=== PATIENT | female | born 1985 | race Caucasian/White ===

== ENCOUNTER 2019-07-12 15:00 | Outpatient (REF) | payer MEDICAID, SELFPAY ==
[2019-07-12 16:12] LABS: HCT 40.2 % (36.0-46.0); HGB 13.6 g/dL (12.0-15.5); Mean Corp. HGB Concentration 33.8 g/dL (32.0-36.0); Mean Corpuscular Hemoglobin 30.8 pg (27.0-33.0); Mean Platelet Volume 10.8 fL (8.0-11.0); Platelet Count 288 x1000/uL (130-400); RBC 4.42 m/cumm (4.00-5.20); RBC Distribution Width 12.2 % (11.7-14.6); White Blood Cell Count 7.74 k/cumm (4.4-10.8)
[2019-07-12 17:01] LABS: ALT 102 U/L (14-59); AST 39 U/L (15-37); Albumin 4.2 g/dL (3.4-5.0); Alkaline Phosphatase 55 U/L (46-116); Anion Gap 6.3 mmol/L (3-11); BUN 15 mg/dL (7-18); Bilirubin, Total 0.7 mg/dL (0.2-1.0); CO2 29.7 mmol/L (21.0-32.0); CREATININE 0.84 mg/dL (0.55-1.02); Calcium 9.2 mg/dL (8.5-10.1); Chloride 102 mmol/L (98-107); Glucose 80 mg/dL (74-106); Sodium 138 mmol/L (136-145); Total Protein 7.7 g/dL (6.4-8.2)
[2019-07-14 09:10] LABS: HBs Antibody, Quant 271.3 mIU/mL (See Note); Hepatitis B Surface Ab Positive (See Note); Hepatitis B Surface Ag Negative (Negative)
[2019-07-14 09:55] LABS: Hep A Total Ab w Rflx IgM Positive (Negative)
[2019-07-14 09:59] LABS: HIV-1/2 Ag & Ab Screen Negative (Negative)
[2019-07-14 15:03] LABS: HCV RNA Detection Quantitative 12204 IU/mL (Undetected); HCV RNA Qualitative Detected (Undetected)
[2019-07-15 11:00] LABS: HCV Genotype 2 (Undetected)
[2019-07-15 15:58] LABS: Hep A Antibody IgM Negative (Negative)
== END 2019-07-12 15:20 ==
LOC: NCHCN 15:00
PROVIDERS: PCP Family Medicine; Visit Provider Family Medicine
DX: B19.20 Unspecified viral hepatitis C without hepatic coma (principal); Z11.4 Encounter for screening for human immunodeficiency virus [HIV]
CPT/HCPCS: 80053; 85027; 86706; 86709; 87340; 87389; 87522; 86704; 87521

== ENCOUNTER 2019-07-21 16:47 | Outpatient (REF) | payer MEDICAID, SELFPAY ==
[2019-07-25 09:58] LABS: ALT 91 U/L (7-45); ActiTest Grade A1-A2; ActiTest Interpretation minimal activity; ActiTest Score 0.43; Alpha-2-Macroglobulin 142 mg/dL (100 - 280); Apoliprotein A1 142 mg/dL (>=140); Bilirubin, Total 0.6 mg/dL (<=1.2); FibroTest Interpretation no fibrosis; FibroTest Score 0.04; FibroTest Stage F0; GGT 8 U/L (5 - 36); Haptoglobin 132 mg/dL (30 - 200)
== END 2019-07-21 17:07 ==
LOC: NCHCN 16:47
PROVIDERS: PCP Family Medicine; Visit Provider Family Medicine
DX: B19.20 Unspecified viral hepatitis C without hepatic coma (principal)
CPT/HCPCS: 81596

== ENCOUNTER 2019-08-23 10:00 | Outpatient (REF) | payer MEDICAID, SELFPAY ==
[2019-08-23 23:32] LABS: Vitamin B12 648 pg/mL (193-986)
== END 2019-08-23 10:20 ==
LOC: NCHCN 10:00
PROVIDERS: PCP Family Medicine; Visit Provider Nurse Practitioner Family
DX: E53.8 Deficiency of other specified B group vitamins (principal); R19.7 Diarrhea, unspecified; B19.20 Unspecified viral hepatitis C without hepatic coma; F31.9 Bipolar disorder, unspecified
CPT/HCPCS: 82607

== ENCOUNTER 2019-09-22 12:56 | Outpatient (REF) | payer MEDICAID, SELFPAY | END 2019-09-22 13:16 | LOC: NCHCN 12:56 | PROVIDERS: PCP Family Medicine; Visit Provider Nurse Practitioner Family | DX: R19.7 Diarrhea, unspecified (principal); B19.20 Unspecified viral hepatitis C without hepatic coma; F31.9 Bipolar disorder, unspecified; R35.0 Frequency of micturition | CPT/HCPCS: 87086 ==

== ENCOUNTER 2019-09-23 10:07 | Outpatient (REF) | payer MEDICAID, SELFPAY ==
[2019-09-23 18:10] LABS: HCT 39.6 % (36.0-46.0); HGB 12.9 g/dL (12.0-15.5); Mean Corp. HGB Concentration 32.6 g/dL (32.0-36.0); Mean Corpuscular Hemoglobin 30.4 pg (27.0-33.0); Mean Corpuscular Volume 93.4 fL (80-95); Mean Platelet Volume 11.2 fL (8.0-11.0); Platelet Count 278 x1000/uL (130-400); RBC 4.24 m/cumm (4.00-5.20); RBC Distribution Width 12.3 % (11.7-14.6); White Blood Cell Count 5.66 k/cumm (4.4-10.8)
[2019-09-23 18:29] LABS: ALT 16 U/L (14-59); AST 12 U/L (15-37); Albumin 4.1 g/dL (3.4-5.0); Alkaline Phosphatase 62 U/L (46-116); Anion Gap 6.5 mmol/L (3-11); BUN 18 mg/dL (7-18); CO2 28.5 mmol/L (21.0-32.0); CREATININE 0.83 mg/dL (0.55-1.02); Calcium 9.2 mg/dL (8.5-10.1); Chloride 104 mmol/L (98-107); Glucose 84 mg/dL (74-106); Potassium 4.2 mmol/L (3.5-5.1); Sodium 139 mmol/L (136-145); Total Protein 7.4 g/dL (6.4-8.2)
[2019-09-26 14:40] LABS: HCV RNA Qualitative Undetected (Undetected)
== END 2019-09-23 10:27 ==
LOC: NCHCN 10:07
PROVIDERS: PCP Family Medicine; Visit Provider Family Medicine
DX: B19.20 Unspecified viral hepatitis C without hepatic coma (principal)
CPT/HCPCS: 80053; 85027; 87522

== ENCOUNTER 2019-11-17 19:52 | Outpatient (REF) | payer MEDICAID, SELFPAY ==
--- NOTE | 2019-11-17 14:30 | PAPFT_PTH ---
PATIENT: Rere Najera LOC: [facility] U#:[id number] AGE/SX: 34/F ROOM: RE11/17/[address]: Jazzmine Dillard : 1985 BED: DIS: 11/17/2019 SPEC #: [id number] RECD: 11/18/19 09:54 STATUS: JAVI REQ #: [id number] ROMARIO: 11/17/19 14:[address]: Jazzmine Dillard [facility] Cytology RECD BY: Lindsey Del Cid ENTERED: 11/18/19 09:55 SP TYPE: PAPFT OTHR DR: Joaquim Magana Tissues: 1 - CX/ENDOCX FOR PAP SMEARS Procedures: PAP THIN PREP/UVM Screening HPV DNA PROBE Comments: [id number] (CHLAMYDIA/GC)
[2019-11-21 14:53] LABS: Chlamydia Result Negative (Negative); GC Result Negative (Negative)
== END 2019-11-17 20:12 ==
LOC: NCHCN 19:52
PROVIDERS: PCP Family Medicine; Visit Provider Nurse Practitioner Family
DX: N89.8 Other specified noninflammatory disorders of vagina (principal); Z12.4 Encounter for screening for malignant neoplasm of cervix; Z11.51 Encounter for screening for human papillomavirus (HPV)
CPT/HCPCS: 87491; 87591; 88142; 87480; 87510; 87624; 87660

== ENCOUNTER 2020-02-01 00:38 | Outpatient (CLI) | payer MEDICAID, SELFPAY ==
--- NOTE | 2020-02-01 10:49 | DI.MAMMO_ITS ---
EXAM: MG MAMMO DIAGNOSTIC BI and left breast ultrasound limited CLINICAL HISTORY: LT BREAST LUMP, DIAGNOSTIC, N63.20. TECHNIQUE: Craniocaudal and mediolateral oblique Full Field Digital Mammography views with Computer Aided Diagnosis followed by Tomosynthesis and left breast ultrasound. COMPARISON: None. FINDINGS: Mammography/Tomosynthesis: Masses/Architectural Distortion: None seen. Microcalcifictions: No suspicious pleomorphic-type are seen. Skin Thickening/Nipple Retraction: None. Left breast US: Echotexture: Normal appearance of the glandular tissue. Shadowing: No suspicious foci. Cyst: None. Solid lesions: There is a hypoechoic radially oriented mildly lobulated avascular mass at the 2 o'divya ck position of the left breast 5 cm from the nipple measuring 0.9 x 0.5 x 1.3 cm. It appears to johnathan espond to the palpable abnormality. There is a 0.6 x 0.2 x 0.7 cm benign-appearing lymph node in the upper-outer quadrant of the left breast. Ductal dilation: None. IMPRESSION: 1. No definite evidence of malignancy is noted. 2. A six-month follow-up left breast ultrasound is recommended for re-evaluation. 3. The findings were discussed with the patient on the date of the examination. BI-RADS Category 3 - 6 month - Probably Benign Finding: Recommend follow-up mammography in 6 months Breast Density - Category D - Extremely dense The mammogram demonstrates the patient's breast tissue is dense. Dense breast tissue is very common a nd is not abnormal but dense breast tissue can make it harder to find cancer on a mammogram. Also, de nse breast tissue may increase their breast cancer risk. This information about the [facility] was provided to the patient to raise their awareness. Use this report when you speak wi th the patient about their risks for breast cancer, which includes their family history. At that time , you may recommend for more screening tests (Ultrasound or MRI) as they might be useful based on the ir risk. A negative radiographic report should not delay biopsy if a dominant or clinically suspicious mass is present. Up to ten percent of cancers are not identified on mammography. A negative report may reinforce clinical impression. Adenosis and dense breasts may obscure an underlying neoplasm. False positive reports average 6 to 10%. Patient will receive a letter notifying them of these results.
== END 2020-02-01 00:58 ==
PROVIDERS: PCP Family Medicine; Visit Provider Nurse Practitioner Family
DX: N63.21 Unspecified lump in the left breast, upper outer quadrant (principal); R59.0 Localized enlarged lymph nodes
CPT/HCPCS: 76642; 77062; 77066; G0279

== ENCOUNTER 2020-04-13 02:29 | Outpatient (CLI) | payer MEDICAID, SELFPAY ==
--- NOTE | 2020-04-13 | DI.US_ITS ---
EXAM: US CHEST CLINICAL HISTORY: MASS BELOW RT BREAST, R22.9 TECHNIQUE: Ultrasound performed using standard protocol. COMPARISON: No exams were available for comparison. This patient has had prior imaging of the oppos ite-left breast January 2018. FINDINGS: Please note this ultrasound study is limited to the area of concern in the right chest wall. The rig ht breast was not scanned. There is a well-defined 3.6 x 3.8 x 0.8 cm lesion at exact palpable location which has appearance of a probable benign lipoma. IMPRESSION: As above. Probable lipoma. However, and rescanning in 3 months time to ensure stability. If it inc reases in size then biopsy will be recommended at that time. DATA REPOSITORY:
== END 2020-04-13 02:49 ==
PROVIDERS: PCP Nurse Practitioner Family; Visit Provider Nurse Practitioner Family
DX: R22.2 Localized swelling, mass and lump, trunk (principal)
CPT/HCPCS: 76642; 76604

== ENCOUNTER 2020-06-06 17:32 | Emergency (ER) | payer MEDICAID, SELFPAY ==
[2020-06-06 17:47] VITALS: BP 129/90; PULSE 72; RESP 16; TEMP 37.3; O2SAT 97
[2020-06-06 18:24] LABS: Bilirubin Negative (Negative); Blood Negative (Negative); Clarity Clear (Clear); Glucose Negative (Negative); Ketones Trace mg/dL (Negative); Leukocyte Esterase Negative (Negative); Nitrite Negative (Negative); Specific Gravity 1.025 (1.005-1.025); Urobilinogen 0.2 EU/dL (Up TO 0.2); pH 5.5 (5-8)
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
[2020-06-06] MEDS: Loperamide 2 MG CAP 4 MG PO (18:42)
[2020-06-06 18:48] LABS: *AMPHETAMINES SCREEN URINE Negative (Negative); *BARBITURATES SCREEN URINE Negative (Negative); *BENZODIAZEPINES SCREEN URINE Negative (Negative); Cannabinoids THC Negative (Negative); Cocaine Screen,Urine Negative (Negative); METHADONE URINE SCREEN Negative (Negative); OPIATES URINE SCREEN Negative (Negative)
[2020-06-06] MEDS: FLUoxetine 20 MG CAP 40 MG PO (18:49)
[2020-06-06 18:50] LABS: Tricyclic Antidepressants Negative (Negative)
[2020-06-06 19:09] LABS: Abs Immature Grans 0.04 10^3/uL (0.0-0.06); Absolute Basophil Count 0.07 10^3/uL (0.0-0.2); Absolute Eosinophil Count 0.04 10^3/uL (0.0-0.7); Absolute Lymphocyte Count 2.13 10^3/uL (1.2-3.4); Absolute Monocyte Count 0.49 10^3/uL (0.1-0.8); Basophils % 0.8; Eosinophils % 0.5; HGB 12.3 g/dL (11.2-15.7); Immature Grans % 0.5; Lymphocytes % 24.6; MCH 31.1 pg (27.0-33.0); MCHC 33.2 % (32.0-36.0); MCV 93.4 fL (80-95); MPV 10.1 fL (8.0-11.0); Monocytes % 5.7; Neutrophils % 67.9; Nucleated RBC 0 %; Platelet Count 266 10^3/uL (130-400); RBC 3.96 10^6/uL (3.93-5.22); RDW 11.9 % (11.7-14.6); RDW-SD 40.7 fL; WBC 8.67 10^3/uL (4.4-10.8)
[2020-06-06 19:27] LABS: ALT 18 U/L (14-59); AST 13 U/L (15-37); Albumin 3.7 g/dL (3.4-5.0); Alkaline Phosphatase 70 U/L (46-116); Anion Gap 8.2 mmol/L (3-11); BUN 12 mg/dL (7-18); Bilirubin, Total 0.7 mg/dL (0.2-1.0); CO2 28.8 mmol/L (21.0-32.0); CREATININE 0.8 mg/dL (0.55-1.02); Calcium 8.9 mg/dL (8.5-10.1); Chloride 102 mmol/L (98-107); Glucose 121 mg/dL (74-106); Potassium 3.6 mmol/L (3.5-5.1); Sodium 139 mmol/L (136-145); TSH 1.97 uIU/mL (0.36-3.74); Total Protein 7.2 g/dL (6.4-8.2)
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
[2020-06-06 19:43] LABS: COVID-19 PCR Negative (Negative)
[2020-06-06 19:56] LABS: ETHANOL BLOOD < 3.0 mg/dL (<3)
[2020-06-06 20:15] LABS: Acetaminophen < 2 ug/mL (10-30); Salicylate < 2.8 mg/dL (<2.8)
[2020-06-06] MEDS: ALPRAZolam 0.25 MG TAB PO (20:17)
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
[2020-06-07] MEDS: LORazepam 1 MG TAB PO (00:57)
[2020-06-07] MEDS: FLUoxetine 20 MG CAP 60 MG PO (09:18)
[2020-06-07] MEDS: Omeprazole 20 MG CAPCR PO (09:30)
[2020-06-07] MEDS: Dicyclomine 20 MG TAB PO ×2 (09:45→15:07)
[2020-06-07] MEDS: Ibuprofen 400 MG TAB PO (11:13)
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
--- NOTE | 2020-06-07 13:29 | PDOC.CMSAFED ---
- If Service Date Differs Date of service: 06/07/20 Time of Service: 13:29 Care Management Safety Plan Status: Voluntary VOLUNTARY FOR INPATIENT PSYCHIATRIC STABILIZATION. Patient is appropriate in all interactions since arriving at [facility]; Pt has demonstrated appropriate coping and communication skills, has articulated his or her needs and concerns and is fully engaged during staff interactions. Safety plan has been established with patient, and care team, to adhere to patient goals, identify restrictions based on behavioral status, address nutrition, and determine allowed personal belongings, tools for hygiene and personal care. Determine level of activity including ambulation, level of supervision, visitors, and determine privileges based on behaviors and level of engagement by pt. SAFETY PLAN: 1. Will remain on suicide precautions and in paper clothes. 2. Will remain in room under direct supervision of one-on-one staff at all times provided by [employer], ANTONIA, DIRECTOR OF RADIOLOGY circus laborer. 3. May have paper cups, plates, finger foods as well as a cardboard spoon with which to eat meals. 4. Follow [facility] Management of the Admitted Behavioral Health Patient policy. 5. Comfort bath system only while in the ED. May shower with supervision at RN discretion if moved to Med/Surg. 6. No personal belongings 7. Visitors-No visitors at this time 8. Activities: Television if available, music tablet, coloring books, crayons, and other activities at nursing discretion. 9. Bathroom privileges: With escort while in the ED. May use bathroom available in room without limitation if moved to Med/Surg. 10. Phone: Phone use at RN discretion. 11. Due to VOLUNTARY status, if patient wishes to leave [facility], staff will contact [facility] Crisis Screener ([phone]) and On-Call Dental Front Office Assistant ([phone]) as soon as possible. In the event of elopement, notify [place] [employer] ([phone]). Patient is currently voluntarily at [facility] and seeking inpatient admission when a bed becomes available. [facility] Frontline Prototype Model Maker will continue seeking placement. Please contact the Director Special Education Dental Front Office Assistant ([phone]) and [facility] Prototype Model Maker ([phone]) for any needed changes in the Safety Plan. Safety plan has been provided to interdepartmental care team.
[2020-06-07 14:51] VITALS: BP 125/83; PULSE 80; RESP 20; TEMP 36.7; O2SAT 98
[2020-06-07 15:30] VITALS: BP 125/83; PULSE 80; RESP 20; TEMP 36.7; O2SAT 98
--- NOTE | 2020-06-08 13:33 | PDOC.MHCN ---
Date of service: 06/07/20 Time of Service: 13:33 Mental Health Crisis Note Presenting Issue How did you arrive at the ED and why did you come: Pt arrived last night via police after being assessed by [facility]. Pt was seeking a voluntary placement. Precipitating Factors Pt still endorses SI. No HI. No delusions Disposition BEHAVIOR: This clinician met with Pt today to assess her need for hospitalization. Pt is laying in her bed wrapped tightly in her blankets. Pt is cooperative with the assessment. She has a very soft spoken voice which is at times difficult to hear. She reported that she needs a hospital stay and when she is done this stay she wants to go back to [place] where she is frim. She has good insight and judgment. EYE CONTACT: Good eye contact MOOD: presents as depressed AFFECT: anxious APPETITE: She had a single bite of her sandwich this morning but was not feeling overly hungry. SLEEP(trouble falling/staying asleep: She reported that she got some sleep last night as the ER gave her some medications when she could not. Provisional Diagnosis This clinician called for hospital placements and Pt was accepted at [facility]. She was transported via [employer]. Signature Clinician's Name/Title: Essence Lee MS, [facility] Emergency Services Clinician, [facility]
== END 2020-06-07 15:32 | disposition still patient (30) ==
PROVIDERS: Emergency Medicine; Emergency Provider Student in an Organized Health Care Education/Training Program; PCP Nurse Practitioner Family
DX: F41.8 Other specified anxiety disorders (principal); R45.851 Suicidal ideations; Z03.818 Encounter for observation for suspected exposure to other biological agents ruled out
CPT/HCPCS: 36415; 80053; 80307; 81025; 87635; 99285; 80320; 80329; 81003; 84443; 85025; 99283